=== PATIENT | female | born 1985 | race Caucasian/White ===

== ENCOUNTER 2016-12-06 10:31 | Emergency (ER) | payer SELFPAY ==
--- NOTE | 2016-12-06 10:42 | ERNOTE ---
[facility] Date of Service: 12/06/16 Presenting Symptoms: other - Eye swelling Time Seen by Provider: 12/06/16 10:41 Source: patient, RN notes reviewed Exam Limitations: no limitations - Immun/Allergies/Home Medications Immunizations: IMMUNIZATION HX Immunizations Up to Date Yes History of Influenza Vaccine Yes Hx Pneumococcal Vaccination No Allergies/Adverse Reactions: Allergies Allergy/AdvReac Type Severity Reaction Status Date / Time No Known Allergies Allergy Verified 12/06/16 10:39 Home Medications: HOME MEDICATIONS NK [No Home Medication] 12/06/16 [Last Taken Unknown] - Pain Score Pain Score #1 Pain Score: 0 - History of Present Illness Narrative: 31 y/o female ambulatory to the ED for left upper eyelid swelling that began 2 nights ago. She had a sudden, sharp pain in her eyebrow as though she had been bitten or stung by an insect. The area was sore that evening and yesterday. Today, it is no longer painful but her upper eyelid is more edematous. She took ibuprofen for discomfort yesterday. She denies any eye discharge or vision changes. Date (Duration): 12/04/16 Severity: Present: mild ENT Location: Present: eye (L) Prearrival Treatment: Present: over the counter meds Associated Symptoms - ENT: Reports: nasal congestion/drainage. Denies: fever, malaise, cough, sore throat, facial pain/swelling, headache, trauma Prior Treament: Denies: recently seen, similar symptoms before Review of Systems - Review of Systems Constitutional: Present: recent illness. Absent: fever, malaise EYE: Absent: eye pain, eye discharge, vision changes, tearing ENT: Present: nose congestion, nasal drainage. Absent: ear pain, sore throat Respiratory: Absent: shortness of breath, cough Cardiology: Present: no symptoms reported Gastrointestinal/Abdominal: Absent: nausea, abdominal pain Genitourinary: Present: no symptoms reported Musculoskeletal: Absent: muscle pain, neck pain Skin: Absent: rash, lesions, lumps Neurological: Absent: headache, dizziness/light-headedness Endocrine: Present: no symptoms reported Hematologic/Lymphatic: Present: no symptoms reported Psych: Present: no symptoms reported - Patient's Past Medical History Patient History - Medical: No pertinent hx Patient History - Cardiac/Respiratory: Deep Vein Thrombosis Patient History - Cancer: No Hx of Cancer Patient History - Surgical Procedures: Appendectomy, Cholecystectomy LMP (Calendar): 11/24/16 - Social History Living Situations: home Smoking Status: Never smoker Have you smoked in the past 12 months: No Alcohol Use: none Drug Use: none - Immunizations Immunizations Up to Date: Yes Hx Pneumococcal Vaccination: No History of Influenza Vaccine: Yes Physical Exam - Physical Exam General Appearance: Present: wd/wn, alert, no apparent distress, obese Eye Exam: Normal inspection: right, PERRL: bilateral, EOMI: bilateral, Other: left - upper eyelid moderately edematous - no lesions or erythema present, no eye drainage, no photophobia, no conjunctival injection Ears, Nose, Throat: Present: normal ENT inspection Neck: Present: normal inspection, nontender, supple. Absent: lymphadenopathy (R ), lymphadenopathy (L) Respiratory: Present: no respiratory distress, normal breath sounds, no accessory muscle use, lungs clear Cardiovascular/Chest: Present: regular rate, rhythm, no murmur, normal peripheral pulses Neurological Exam: Present: alert, oriented, normal mood/affect, no motor/ sensory deficits Skin Exam: Present: warm/dry. Absent: normal color - sunburn to face and upper extremities, skin rash ED Progress - Vital Signs Patient's Vital Signs:: I have reviewed the patient's vital signs. Vital Signs: Vital Signs 12/06/16 10:36 Temperature 37.2 C Pulse Rate 83 Respiratory 14 Rate Blood Pressure 151/80 O2 Sat by Pulse 98 Oximetry - Progress/Reassessment Chief Complaint: Eye Injury/Trauma Progress:: Unchanged Departure Clinical Impression: Edema of left upper eyelid - Departure Disposition: Home self-care Condition: Good Instructions: Angioedema, [id number] Additional Instructions: Cold compresses to swollen area several times a day Benadryl cream as directed on package Return to ER or see your doctor for pain, fever, eye discharge, or other worsening symptoms
--- OUTSIDE RECORDS SUMMARY | 2016-12-06 10:53 | XMS REPORT | Continuity of Care Document ---
:1985 Author Organization [facility] [place] [address] Care Team Providers Name Role Phone Gill Giron Primary Care Provider [phone] Source Comments This disclosure is being made pursuant to the [place] [employer] program and contain all information available regarding this patient.[facility] Active Allergies and Adverse Reactions No Known Allergies Current Medications Be aware that medications may not be up to date as of this document. Alwaysverify current medications with the patient. Prescription Sig. Disp. Refills Start Date End Date Status albuterol (PROAIR Inhale 2 puffs 18 g 0 10/25/2015 Active HFA;PROVENTIL into the lungs HFA;VENTOLIN HFA) 108 every 6 (six) (90 BASE) MCG/ACT hours as needed inhaler for Wheezing. ibuprofen Take 400 mg by Active (ADVIL,MOTRIN) 200 MG mouth every 6 tablet (six) hours as needed for Pain. triamcinolone Apply to 45 g 1 11/14/2016 Active (KENALOG) 0.1 % cream affected area 3 times daily clarithromycin 1 tab PO bid x 28 tablet 0 10/28/2016 11/11/2016 (BIAXIN) 500 MG 14 days tablet cephALEXin (KEFLEX) 1 capsule PO 30 capsule 0 11/14/2016 11/24/2016 500 MG capsule every 8 hrs x 10 days Active Problems Problem Noted Date Uncomplicated varicose veins 12/15/2013 Overview: Overview: GILL GIRON MD Venous (peripheral) insufficiency 12/15/2013 Overview: Overview: GILL GIRON MD Family history of cardiovascular disease 10/10/2013 Overview: Overview: MATERNAL AUNT GILL GIRON MD Personal history of thrombophlebitis 10/10/2013 Overview: Overview: BILATERAL LEGS GILL GIRON MD Obesity 10/10/2013 Overview: Overview: GILL GIRON MD Most Recent Encounters Date Type Specialty Providers Description 11/14/2016 Office Visit Urgent Care Rony Hennessy DO Acute frontal sinusitis, recurrence not specified (Primary Dx); Thrombophlebitis of superficial veins of right lower extremity 10/28/2016 Office Visit Urgent Care Jamie Mcclain MD Acute non- recurrent maxillary sinusitis (Primary Dx); Sore throat Social History Tobacco Use Types Packs/Day Years Used Date Never Smoker Smokeless Tobacco: Never Used Alcohol Use Drinks/Week oz/Week Comments No 0 Standard drinks or equivalent 0.0 Last Filed Vital Signs Vital Sign Reading Time Taken Blood Pressure 104/74 11/14/2016 9:42 AM CDT Pulse 81 11/14/2016 9:42 AM CDT Temperature 36.9 C (98.4 F) 11/14/2016 9:42 AM CDT Respiratory Rate 18 11/14/2016 9:42 AM CDT Height 1.715 m (5' 7.5") 06/10/2016 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
--- OUTSIDE RECORDS SUMMARY | 2016-12-06 10:53 | XMS REPORT | Continuity of Care Document ---
:1985 Author Organization [facility] ([facility]) Address [address] [place] [address] Phone [phone] Care Team Providers Name Role Phone Tracie Neftaly Lewis Primary Care Provider [phone] Source Comments This disclosure is being made pursuant to the Care Everywhere program, applicable federal and state laws, and may not contain all informaitonavailable regarding this patient.[facility] ([facility]) Active Allergies and Adverse Reactions No Active Allergies Current Medications Not on file Active Problems Problem Noted Date Abdominal pain, right upper quadrant 12/30/2007 Social History Tobacco Use Types Packs/Day Years Used Date Never Assessed Plan of Care Health Maintenance Due Date Last Done Comments Hepatitis B Vaccine (1 of 3 - Primary Series) 1985 Tdap Vaccine 01/30/1995 Lipid Disorder Screening 01/30/2002 MMR Vaccine 01/30/2002 Td Vaccine 01/30/2002 Varicella Vaccine (1 of 2 - Adult - No Evidence of 01/30/2002 Immunity) Cervical Cancer Screening 01/30/2014 Influenza Vaccine: Seasonal (#1) 02/25/2016 Results from Last 3 Months Not on file
[2016-12-06 11:02] VITALS: BP 138/82
== END 2016-12-06 11:02 | disposition home or self-care (01) ==
LOC: ER 10:31
DX: H02.844 Edema of left upper eyelid (principal); Z86.718 Personal history of other venous thrombosis and embolism